=== PATIENT | female | born 1995 | race Caucasian/White ===

== ENCOUNTER 2023-08-13 03:49 | Emergency (ER) | payer MEDICAID, BC ==
[~2023-08-13] VITALS: Ht 149.9 cm; Wt 54.5 kg
[2023-08-13 04:00] VITALS: BP 116/71; PULSE 73; RESP 18; TEMP 97.4; O2SAT 98
[2023-08-13] MEDS ORDERED: ibuprofen tablet 400 MG TABLET PO ONE (04:30)
[2023-08-13] MEDS ORDERED: amox tr/potassium clavulanate 500mg/125mg TAB PO ONE (04:30)
[2023-08-13] MEDS ORDERED: acetaminophen 325mg tablet PO ONE (04:30)
[2023-08-13] MEDS ORDERED: NEOM10DR45 RIGHT EAR (04:32)
[2023-08-13] MEDS ORDERED: ACET-1025 PO (04:32)
[2023-08-13] MEDS ORDERED: AMOX-419 PO (04:32)
[2023-08-13] MEDS ORDERED: IBUP-1984 PO (04:32)
== END 2023-08-13 04:50 | disposition home or self-care (01) ==
LOC: ER 03:50
DX: H60.8X1 Other otitis externa, right ear (principal); Z79.899 Other long term (current) drug therapy
CPT/HCPCS: 99284